=== PATIENT | male | born 1935 ===

== ENCOUNTER 2021-07-16 16:06 | Emergency (ER) | payer MEDICARE, OTHER ==
[~2021-07-16] VITALS: Ht 180.3 cm; Wt 79.4 kg
[2021-07-16 16:43] VITALS: BP 122/80
[2021-07-16] MEDS ORDERED: CEPH500C PO (18:57)
== END 2021-07-16 19:09 | disposition home or self-care (01) ==
LOC: EDBD 16:06 → ER 16:14
DX: S00.03XA Contusion of scalp, initial encounter (principal); W07.XXXA Fall from chair, initial encounter; Y93.89 Activity, other specified; Y92.89 Other specified places as the place of occurrence of the external cause; Y99.8 Other external cause status
CPT/HCPCS: 70450; 93005